=== PATIENT | female | born 1960 | race Caucasian/White ===

== ENCOUNTER 2018-05-18 07:58 | Outpatient (CLI) | payer BC ==
--- NOTE | 2018-05-18 10:38 | ULT ---
COMPLETE ABDOMINAL ULTRASOUND: Comparison: None. History: Epigastric abdominal pain. Technique: Multiplanar grayscale and color doppler images were obtained in a complete abdominal ultra sound. FINDINGS: The liver is normal in echogenicity without focal lesions or intrahepatic ductal dilatation. The gall bladder is contracted without shadowing stones, gallbladder wall thickening, or pericholecystic fluid . The common bile duct is normal measuring 2 mm. The aorta and inferior vena cava are normal in caliber. The visualized portions of the pancreas are u nremarkable. The spleen is normal in echogenicity without focal lesions and measures 10.8 cm in lengt h. Both kidneys are normal in echogenicity without hydronephrosis or calculi and measures 11.1 and 11.3 cm in length, on the right and left respectively. IMPRESSION: Unremarkable exam. POS: [facility]
== END 2018-05-18 07:59 | disposition home or self-care (01) ==
LOC: ULT 07:58
PROVIDERS: ATTEND Internal Medicine
DX: R10.13 Epigastric pain (principal)
CPT/HCPCS: 76700

== ENCOUNTER 2018-05-18 14:14 | Emergency (ER) | payer BC ==
[2018-05-18] MEDS ORDERED: ISOVUE-370 76%-LOCM 1 ML ONE (14:21)
--- NOTE | 2018-05-18 15:01 | RAD ---
PORTABLE CHEST 1 VIEW: Date: 05/18/18 Time: 1445 hours HISTORY: Fever, abdominal pain, elevated bands. FINDINGS: The heart size is normal. The lungs expanded without focal areas of consolidation, pneumothorax, or p leural effusions. IMPRESSION: No radiographic evidence of acute cardiopulmonary process. POS: [facility]
[2018-05-18 15:35] LABS: #Lymphocytes 0.8 thou/uL (1.20-3.40); #Monocytes 0.4 thou/uL (0.11-0.59); #Neutrophils 2.9 thou/uL (1.40-6.50); %Basophils 0.2 % (0.0-1.0); %Eosinophils 0.7 % (0.0-10.0); %Lymphocytes 19.5 % (21.0-51.0); %Neutrophils 70.6 % (42.0-75.0); Hemoglobin 13.7 g/dL (12.0-16.0); Mean Corpuscular HGB CONC 33.8 g/dL (32.0-36.0); Mean Corpuscular Hemoglobin 31.8 pg (27.0-31.0); Mean Corpuscular Volume 94.1 fL (78.0-98.0); Mean Platelet Volume 7.2 fL (7.4-10.4); Platelet Count 171 thou/uL (130-400); RBC Distribution Width 11.7 % (11.5-14.5); Red Blood Cell (RBC) Count 4.31 mill/uL (4.20-5.40); White Blood Cell (WBC) Count 4.1 thou/uL (4.8-10.8)
[2018-05-18 15:53] LABS: CKMB 1.2 ng/mL (0-6.6); Troponin I Less than 0.010 ng/mL (< 0.028)
[2018-05-18 16:02] LABS: ALT (SGPT) 24 U/L (8-55); AST (SGOT) 24 U/L (5-34); Albumin 3.9 g/dL (3.5-5.0); Alkaline Phosphatase 72 U/L (40-150); Anion Gap 13 mmol/L (10-20); BUN (Urea Nitrogen) 9 mg/dL (9.8-20.1); Bilirubin, Total 0.4 mg/dL (0.2-1.2); CK (CPK) 120 U/L (29-168); Calc. Creatinine Clearance 0 mL/min (70-130); Calcium 9.5 mg/dL (7.8-10.44); Carbon Dioxide 23 mmol/L (22-29); Chloride 103 mmol/L (98-107); Estimated GFR-MDRD 89; Globulin 2.7 g/dL (2.4-3.5); Glucose 94 mg/dL (70-105); Lipase 12 U/L (8-78); Protein, Total 6.6 g/dL (6.0-8.3); Sodium 135 mmol/L (136-145)
[2018-05-18 16:02] LABS: Bilirubin Negative (Negative); Blood, Urine Small (Negative); Clarity CLEAR (Clear); Glucose, Urine (Dipstick) Negative (Negative); Leukocyte Negative (Negative); Nitrite Negative (Negative); Protein, Urine (Dipstick) Negative (Neg-Trace)
[2018-05-18 16:03] LABS: Bacteria/HPF None Seen HPF (None Seen); Hyaline Casts/LPF 0-3 HYALINE CAST LPF (0-3 Hyaline); RBC/HPF 0-3 HPF (0-3); Squamous Epithelial None Seen HPF (0-3); WBC/HPF 0-3 HPF (0-3)
[2018-05-18] MEDS ORDERED: Ketorolac Tromethamine 30 MG/ML VIAL ONE (16:12)
--- NOTE | 2018-05-18 17:34 | CT ---
CT ABDOMEN WITH CONTRAST CT PELVIS WITH CONTRAST: DATE: 05/18/18 TIME: 5:09 p.m. HISTORY: 58-year-old female with generalized abdominal pain, leukocytosis, and fever. COMPARISON: None. TECHNIQUE: IV injection of iodinated contrast media: 100 mL of Isovue 370. Oral contrast media: No administered. FINDINGS: There is a large number of mildly and moderately enlarged mesenteric lymph nodes located centrally th roughout the abdominal cavity, surrounded by fat stranding representing edema, of the mesentery (mist y mesentery). Multiple diverticula throughout the descending colon and a few in the proximal sigmoid colon, without signs of acute colonic diverticulitis. Normal appendix, spleen, pancreas, adrenals, ki dneys, liver and urinary bladder. No ascites or pneumoperitoneum. No pleural effusion. No destructive osseous lesion identified. IMPRESSION: 1. Diffuse, moderate mesenteric lymphadenopathy associated with mesenteric edema (drew mesenter y). 2. These are nonspecific findings, and differential diagnosis includes mesenteric panniculitis a nd lymphoma. Followup is recommended. BLAKE Mclean POS: [facility]
== END 2018-05-18 18:04 | disposition home or self-care (01) ==
LOC: ERS 14:14
DX: I88.0 Nonspecific mesenteric lymphadenitis (principal); K65.4 Sclerosing mesenteritis; E03.9 Hypothyroidism, unspecified; I10 Essential (primary) hypertension; Z79.899 Other long term (current) drug therapy; Z79.82 Long term (current) use of aspirin
CPT/HCPCS: 36415; 71045; 74177; 76700; 80053; 81003; 81015; 82550; 82553; 83605; 83690; 84484; 85025; 87040; 87086; 87149; 93005; 96361; 96374; J1885

== ENCOUNTER 2018-05-19 22:44 | Observation (INO) | payer BC ==
[~2018-05-19 22:44] MED LIST: ISOVUE-370 76%-LOCM 1 ML ONE
[2018-05-19 23:20] LABS: #Eosinphils 0.1 thou/uL (0.0-0.7); #Lymphocytes 1.8 thou/uL (1.20-3.40); #Monocytes 0.5 thou/uL (0.11-0.59); #Neutrophils 1.4 thou/uL (1.40-6.50); %Basophils 0.6 % (0.0-1.0); %Eosinophils 2.3 % (0.0-10.0); %Lymphocytes 46.7 % (21.0-51.0); %Neutrophils 36.3 % (42.0-75.0); Hemoglobin 13.3 g/dL (12.0-16.0); Mean Corpuscular HGB CONC 34.3 g/dL (32.0-36.0); Mean Corpuscular Volume 93.1 fL (78.0-98.0); Mean Platelet Volume 7.2 fL (7.4-10.4); Platelet Count 194 thou/uL (130-400); RBC Distribution Width 11.8 % (11.5-14.5); Red Blood Cell (RBC) Count 4.17 mill/uL (4.20-5.40); White Blood Cell (WBC) Count 3.8 thou/uL (4.8-10.8)
[2018-05-19 23:21] LABS: Bilirubin Negative (Negative); Blood, Urine Trace (Negative); Clarity CLEAR (Clear); Glucose, Urine (Dipstick) Negative (Negative); Leukocyte Negative (Negative); Nitrite Negative (Negative); Protein, Urine (Dipstick) Negative (Neg-Trace); Specific Gravity, Urine 1.007 (1.002-1.036); Urobilinogen 0.2 mg/dL (0.2-1.0)
--- NOTE | 2018-05-19 23:22 | RAD ---
RADIOGRAPH CHEST 1 VIEW: 05/19/18 HISTORY: 58-year-old female with fever and chest pain. FINDINGS: There are no air space densities, pulmonary edema, pneumothorax, or cardiomegaly. The lateral costop hrenic angles are sharp. There are two small foci of lucency, probably gas, in the soft tissues proje cting along the lateral margin of the left upper to mid rib cage. IMPRESSION: 1. No acute cardiopulmonary findings. 2. Two small focal lucencies in the soft tissues overlying the left upper lateral chest wall whi ch may represent small foci of gas in the soft tissues. The cause of this is not apparent. Consider t he possibility of abscess in this location, given history of fever. CT of the chest (preferably with IV contrast, unless contraindicated) may be useful, with attention to this area. brook aguilar POS: [facility]
[2018-05-19 23:23] LABS: Bacteria/HPF None Seen HPF (None Seen); Hyaline Casts/LPF 0-3 HYALINE CAST LPF (0-3 Hyaline); Squamous Epithelial None Seen HPF (0-3); WBC/HPF 0-3 HPF (0-3)
[2018-05-19 23:44] LABS: ALT (SGPT) 26 U/L (8-55); AST (SGOT) 30 U/L (5-34); Albumin 3.8 g/dL (3.5-5.0); Alkaline Phosphatase 64 U/L (40-150); Anion Gap 15 mmol/L (10-20); BUN (Urea Nitrogen) 6 mg/dL (9.8-20.1); Bilirubin, Total 0.3 mg/dL (0.2-1.2); Calc. Creatinine Clearance 0 mL/min (70-130); Calcium 9.1 mg/dL (7.8-10.44); Carbon Dioxide 20 mmol/L (22-29); Chloride 107 mmol/L (98-107); Estimated GFR-MDRD Greater than 90; Globulin 2.8 g/dL (2.4-3.5); Glucose 87 mg/dL (70-105); Lipase 18 U/L (8-78); Potassium 3.7 mmol/L (3.5-5.1); Protein, Total 6.6 g/dL (6.0-8.3); Sodium 138 mmol/L (136-145)
[2018-05-19] MEDS ORDERED: Piperacillin/Tazobactam 3.375 GM VIAL ONE (23:47)
[2018-05-20] MEDS ORDERED: Ondansetron HCl/PF 4 MG/2 ML Vial IVP PRN (01:30)
[2018-05-20] MEDS ORDERED: Sodium Chloride 0.45% 1,000 ML IV SCH (01:30)
[2018-05-20] MEDS ORDERED: Ondansetron ODT 4 MG TAB SL PRN (01:30)
[2018-05-20 02:17] VITALS: BMI 36.1
[2018-05-20] MEDS ORDERED: Acetaminophen 325 MG TAB PO PRN (02:33)
[2018-05-20] MEDS: Sodium Chloride 0.45% 1,000 ML IV SCH ×2 (02:39→12:46)
[2018-05-20] MEDS ORDERED: VANCOMYCIN IVPB PRN (02:48)
[2018-05-20 05:12] LABS: Anion Gap 11 mmol/L (10-20); BUN (Urea Nitrogen) 6 mg/dL (9.8-20.1); Calc. Creatinine Clearance 161 mL/min (70-130); Calcium 8.9 mg/dL (7.8-10.44); Carbon Dioxide 24 mmol/L (22-29); Chloride 107 mmol/L (98-107); Estimated GFR-MDRD Greater than 90; Glucose 86 mg/dL (70-105); Potassium 3.4 mmol/L (3.5-5.1); Sodium 139 mmol/L (136-145)
--- NOTE | 2018-05-20 05:30 | HP ---
PRIMARY CARE PHYSICIAN: Dr. Patel Lewis. CODE STATUS: FULL CODE. TIME OF EVALUATION: 2:30 a.m. CHIEF COMPLAINT: Positive blood culture. HISTORY OF PRESENT ILLNESS: This is a 58-year-old female patient with past medical history of hypertension and hypothyroidism, came to the hospital after being reported that she had positive blood cultures. The patient came 2 days ago to the ER, she was seen because of fever. The patient has been having fever for 3 days, with no other focal signs or symptoms. The patient was sent home after workup was negative. One of the blood cultures came back positive today and for that reason, she was called to the ER. The fever has improved, she was not on any antibiotics by the time of discharge. The symptoms have improved, no clear triggers for the fever. REVIEW OF SYSTEMS: Constitutional: Patient reported fever, no chills, no weakness. Respiratory: No cough, no sputum production, no shortness of breath. Cardiovascular: No chest pain, palpitation, or shortness of breath. Gastrointestinal: No nausea, vomiting, no diarrhea, no abdominal pain. PATTERN REPAIR PERSON: No dizziness, headache, or feeling lightheaded. Genitourinary: No burning on urination. Extremities: No leg swelling. All other systems were reviewed that were negative except for the findings mentioned above. PAST MEDICAL HISTORY: Hypothyroidism and hypertension. PAST SURGICAL HISTORY: Tubal ligation. SOCIAL HISTORY: Patient drinks socially twice a month. No drugs. No smoking history. FAMILY HISTORY: Mother is healthy. Father had diabetes and heart problems. ALLERGIES: IBUPROFEN. REPORTED MEDICATIONS: Vitamin D3 of 5000 units once a day, vitamin B complex one tablet orally once a day, aspirin 81 mg daily, lisinopril/ hydrochlorothiazide 10 mg/12.5 mg one tablet orally once a day, liothyronine 30 mcg once a day, levothyroxine 70 mcg once a day. PHYSICAL EXAMINATION: VITAL SIGNS: On presentation, blood pressure 127/73 with heart rate 70, respiratory rate 18, temperature 98.5. GENERAL APPEARANCE: The patient is alert, oriented, not in any acute distress. HEENT: Eye normal conjunctiva. Moist oral mucosa. RESPIRATORY: Bilateral air entry. No rales, no wheezing. Symmetric expansion. CARDIOVASCULAR: Normal rate, regular rhythm. No murmurs, no gallop. No edema. ABDOMEN: Soft, normal bowel sounds. MUSCULOSKELETAL: Baseline range of motion and strength. No tenderness. SKIN: Warm and intact. No pallor, no rash, no redness. NEUROLOGIC: Baseline sensorium. No evidence of any new focal weakness. Baseline speech. Cranial nerves seems to be intact. PSYCHIATRIC: Good mood. No anxiety, oriented, optimal judgment. LABORATORY DATA: Reviewed. The patient has a white count of 3.8, hemoglobin 13.3, MCV 93, platelet count 194. Potassium 3.7, sodium 138, chloride 107, carbon dioxide 20, anion gap 15, BUN 6, creatinine 0.6, GFR greater than 90, glucose 87, calcium 9.1, magnesium 2.0. Total bilirubin 0.3, AST 30, ALT 26, alkaline phosphatase 84, serum total protein 6.6, albumin 3.8, globulin 2.8. Urine was negative. Chest x-ray was reviewed. The patient had no acute cardiopulmonary findings. There are two small focal lucencies in the soft tissue overlying the left upper lateral chest wall, which may represent small foci of gas in the soft tissue, the cause of this is not apparent. Considering the possibility of abscess in this location given history of fever, CT of the chest peripherally with IV contrast unless contraindicated may be useful with attention to this area. CAT scan was done, report not available. GI needs to be followed by the radiologist report. ASSESSMENT AND PLAN: 1. Possible bacteremia, there was a report of 1/2 positive blood culture, sensitivities pending, for that reason, patient was called back emergently and started on antibiotics, given history of having bandemia and fever in the past 2 days. We will follow final report for the blood cultures. We will adjust the treatment as needed. 2. There was a finding on this chest x-ray, possible abscess in the upper chest , CT was done, the official report is still pending. We will follow, we will treat accordingly. 3. Hypothyroidism. Continue hormone replacement. 4. History of hypertension. Continue blood pressure medications, this is controlled. 5. Deep venous thrombosis prophylaxis. 6. Obesity. Advised to lose weight. [facility]
[2018-05-20] MEDS: Piperacillin/Tazobactam 3.375 GM in Sodium Chloride 0.9% 100 ML IVPB SCH ×2 (05:57→12:35)
[2018-05-20 07:05] LABS: Hemoglobin 12.2 g/dL (12.0-16.0); Mean Corpuscular Hemoglobin 31.8 pg (27.0-31.0); Mean Corpuscular Volume 93.5 fL (78.0-98.0); Mean Platelet Volume 6.7 fL (7.4-10.4); Platelet Count 178 thou/uL (130-400); RBC Distribution Width 11.7 % (11.5-14.5); Red Blood Cell (RBC) Count 3.82 mill/uL (4.20-5.40); White Blood Cell (WBC) Count 3.4 thou/uL (4.8-10.8)
[2018-05-20 07:54] LABS: Band 15 % (5-11); Eosinophils 4 % (0-10); Lymphocytes 57 % (21-51); MDiff Complete? YES; Monocytes 10 % (0-10); Neutrophil 12 % (42-75); RBC Morphology Normal; Reactive Lymphocytes 2 % (0-10)
[2018-05-20] MEDS ORDERED: Vancomycin HCl 1.5 GM in Sodium Chloride 0.9% 250 ML 300 ML IVPB SCH (08:00)
[2018-05-20] MEDS: Aspirin 81 mg Enteric Coated Tablet PO SCH ×2 (08:35→10:09)
--- NOTE | 2018-05-20 08:43 | CT ---
PRELIMINARY REPORT/[facility]/EMERGENTY AFTER-HOURS PROCEDURE CT Angiography Chest With Intravenous Contrast CLINICAL HISTORY: 58 years old, female; cough 3 weeks ago that has worsened the last couple of days. TECHNIQUE: Axial computed tomographic angiography images of the chest with intravenous contrast using pulmonary embolism protocol. MIP reconstructed images were created and reviewed. COMPARISON: No relevant prior studies available. FINDINGS: Pulmonary arteries: No acute findings. No pulmonary embolism. Aorta: No acute findings. No thoracic aortic aneurysm. Lungs: No acute findings. No mass. No consolidation. Pleural space: No acute findings. No significant effusion. No pneumothorax. Heart: No acute findings. No cardiomegaly. No significant pericardial effusion. No evidence of RV dys function. Bones/joints: Chronic degenerative spinal changes without acute fracture or dislocation. Soft tissues: No acute findings. Lymph nodes: No acute findings. No enlarged lymph nodes. Upper abdomen: Liver demonstrates fatty infiltration without visible focal mass. IMPRESSION: No pulmonary embolism. No acute disease identified. Thank you for allowing us to participate in the care of your patient. Dictated and Authenticated by: Zainab Velasco MD 05/20/2018 1:44 AM Central Time ([place] & [place]) CTA CHEST WITH CONTRAST: Date: 05/19/18 HISTORY: Cough. COMPARISON: Chest radiograph from prior day. FINDINGS: CT angiogram chest performed after the intravenous administration of contrast. 3D rendering provided. No proximal or segmental pulmonary arterial filling defect. Heart size is normal. No pericardial effu bry. Upper abdomen is unremarkable. There is some layering debris within the gallbladder. No focal air space consolidation, pneumothorax, or effusion. No suspicious pulmonary nodules. IMPRESSION: 1. No proximal pulmonary arterial filling defect. 2. No acute intrathoracic abnormality. Code: isabel POS: [facility]
[2018-05-20] MEDS ORDERED: Lisinopril/Hydrochlorothiazide 10 mg/12.5 mg Tablet PO SCH (09:00)
[2018-05-20] MEDS ORDERED: Folic Acid/Vit B Comp W-C PO SCH (09:00)
[2018-05-20] MEDS ORDERED: Enoxaparin Sodium 40 MG/0.4 ML SYRINGE SC SCH (09:00)
[2018-05-20] MEDS ORDERED: Potassium Chloride 20 MEQ TAB PO SCH (11:30)
[2018-05-20 11:47] VITALS: BP 128/70; TEMP 98.3
--- NOTE | 2018-05-20 12:39 | DIS ---
DATE OF ADMISSION: 05/20/2018 DATE OF DISCHARGE: 05/20/2018 CONDITION AT THE TIME OF DISCHARGE: Stable and improved. DISCHARGE DIAGNOSES: 1. One out of two positive blood cultures, likely contamination. 2. Bandemia without any significant evidence of bacterial infection. 3. Viral gastroenteritis, suspected. 4. Hypothyroidism. 5. Hypertension. PRIMARY CARE PHYSICIAN: Dr. Patel Lewis. DISCHARGE MEDICATIONS: Resume home medications as dictated in the H&P. No changes were made. New m edications, metronidazole 500 mg 3 times a day for 7 days, levofloxacin 500 mg daily for 7 days and F lorastor 250 mg daily for 10 days. PROCEDURES DONE IN THE HOSPITAL: CT angio of the thorax with contrast which does not show any acute disease or pulmonary embolism. HISTORY OF PRESENTING ILLNESS: Ms. Michel is a 58-year-old female with past medical history of hype rtension and hypothyroidism, who was admitted for positive blood cultures. The patient has been havi ng symptoms of fever and chills and was seen in the emergency room a few days ago. Cultures were obt ained at that time and she was not prescribed any antibiotics at the time of discharge. One of the c ultures came back positive as gram positive cocci 1/2 so she was called back to get admitted for furt her workup. Please see admission history and physical for further detail. The patient has had donovan p including a CT scan of the abdomen and pelvis done on 05/18/2018, which did show evidence of some m esenteritis, moderate mesenteric lymphadenopathy. She was found to have 58% bands at that time. Myrna s was followed by an abdominal ultrasound on the same day in the emergency room which was unremarkabl e. She was called back in when one out of two blood cultures tested positive as above. Please see admis bry history and physical for further details. HOSPITAL COURSE: Ms. Michel's blood cultures remain the same. She has one out of two blood culture positive for gram positive cocci. I have consulted the microbiology lab for this. According to the nucleic acid testing done, it is negative for staphylococcus species; streptococcus species; enteroc occus species and Listeria. Final cultures are pending at this time. Repeat blood cultures and urin e cultures have been obtained and are pending at this time and negative so far. The patient is afebr ile and feels well. She is still having 1-2 loose stools on a daily basis, but no nausea or vomiting . She is able to tolerate the diet very well. Her band count has improved from 58%-15%. At this time, her most likely diagnosis is contamination. She most likely has viral gastroenteritis, but infectious and gastroenteritis can also not be ruled out. For this reason, she will be prescrib ed antibiotics. Her final culture results will be followed up by her primary care physician, Dr. Franchesca chase. The patient is instructed about the same and verbalizes understanding. She was seen and examine d prior to discharge. PHYSICAL EXAMINATION: VITAL SIGNS: This morning, temperature 98, pulse of 66, respirations 16, saturating 96% on room air, blood pressure 131/74. GENERAL: No acute distress, awake, alert, oriented x3. CHEST: Clear to auscultation without any wheezing, rales or rhonchi. Rate and rhythm is regular. ABDOMEN: Soft, nontender, nondistended, positive bowel sounds. At this time, she is discharged back home to follow up with primary care physician. The patient is i nstructed to call or come back if her symptoms worsen.
[2018-05-20] MEDS ORDERED: Progesterone,Micronized 100 MG CAP PO SCH (21:00)
[2018-05-23] MEDS ORDERED: Estradiol 0.05mg/24 Hour Patch (Weekly) TD SCH (09:00)
== END 2018-05-20 12:57 | disposition home or self-care (01) ==
LOC: ERS 22:44 → 2SW 05-20 00:44
PROVIDERS: ADMIT Hospitalist; ATTEND Hospitalist
DX: R78.81 Bacteremia (principal); E03.9 Hypothyroidism, unspecified; I10 Essential (primary) hypertension; E66.9 Obesity, unspecified; Z88.6 Allergy status to analgesic agent; Z79.82 Long term (current) use of aspirin; Z79.899 Other long term (current) drug therapy; Z68.36 Body mass index [BMI] 36.0-36.9, adult
CPT/HCPCS: 36415; 71045; 71275; 80048; 80053; 81003; 81015; 83690; 83735; 85025; 87040; 87086; 93306; 96361; 96365; 96366; 96367; 96372; G0378; J1650; J2543; J3370; J7050

== ENCOUNTER 2018-07-06 09:25 | Outpatient (CLI) | payer BC | END 2018-07-06 09:26 | disposition home or self-care (01) | LOC: BICMAMMO 09:25 | PROVIDERS: ATTEND Family Medicine | DX: Z12.31 Encounter for screening mammogram for malignant neoplasm of breast (principal); Z80.3 Family history of malignant neoplasm of breast | CPT/HCPCS: 77063; 77067 ==

== ENCOUNTER 2023-03-24 12:02 | Outpatient (CLI) | payer BC | END 2023-03-24 12:03 | disposition home or self-care (01) | LOC: BICMAMMO 12:02 | PROVIDERS: ATTEND Obstetrics & Gynecology | DX: Z12.31 Encounter for screening mammogram for malignant neoplasm of breast (principal) | CPT/HCPCS: 77063; 77067 ==